=== PATIENT | male | born 1950 | race Caucasian/White ===

== ENCOUNTER 2016-11-20 15:23 | Emergency (ER) | payer MEDICARE, OTHER ==
[~2016-11-20] VITALS: Ht 182.9 cm; Wt 111.1 kg
[2016-11-20 16:42] VITALS: BP 122/84
== END 2016-11-20 17:05 | disposition home or self-care (01) ==
LOC: ER 15:28
DX: S50.12XA Contusion of left forearm, initial encounter (principal); I10 Essential (primary) hypertension; V89.2XXA Person injured in unspecified motor-vehicle accident, traffic, initial encounter; Y93.89 Activity, other specified; Y99.8 Other external cause status; Y92.89 Other specified places as the place of occurrence of the external cause
CPT/HCPCS: 73090